=== PATIENT | male | born 1980 | race Caucasian/White ===

== ENCOUNTER 2024-04-28 17:01 | Inpatient (IN) | payer OTHER ==
[~2024-04-28] VITALS: Ht 182.9 cm; Wt 109.4 kg
[2024-04-28] MEDS: LABETALOL HCL 5 MG/ML 20 ML VIAL IVP ONE (20:07)
[2024-04-28] MEDS: HydrALAZINE HCL 20 MG/ML VIAL IVP ONE (21:19)
[2024-04-28] MEDS: AmLODIPine BESYLATE 10 MG TABLET PO SCH (22:30)
[2024-04-28] MEDS: NITROGLYCERIN 2% (1 GM=INCH) OINTMENT PACKET TP SCH (22:32)
[2024-04-28] MEDS: HydrALAZINE HCL 20 MG/ML VIAL IVP PRN (23:21)
[2024-04-29] VITALS (7 sets, daily range): BP systolic 128–191; BP diastolic 66–106; PULSE 61–92; RESP 17–18; TEMP 98–98.3; O2SAT 95–98
[2024-04-29] MEDS: HEPARIN SODIUM,PORCINE 5,000 UNITS/ML VIAL SQ SCH
[2024-04-29] MEDS: ACETAMINOPHEN 325 MG TABLET PO PRN (00:02)
[2024-04-29] MEDS ORDERED: TERAZOSIN HCL 2 MG CAPSULE PO SCH (00:15)
[2024-04-29] MEDS: LISINOPRIL 10 MG TABLET PO ONE (00:57)
[2024-04-29] MEDS ORDERED: SODIUM CHLORIDE 0.9% 250 ML IV ONE (01:43)
[2024-04-29] MEDS: ACETAMINOPHEN 500 MG/ISO-OSM 50 ML IV ONE (02:12)
[2024-04-29] MEDS: ONDANSETRON HCL 4 MG/2 ML VIAL IVP PRN (06:18)
[2024-04-29] MEDS: NITROGLYCERIN 2% (1 GM=INCH) OINTMENT PACKET TP SCH ×2 (06:21→12:19)
[2024-04-29 07:07] LABS: ANION GAP 11 mmol/L (8-16); CALCIUM, TOTAL 8.9 mg/dL (8.8-10.5); CARBON DIOXIDE 26 mmol/L (22-29); CHLORIDE 100 mmol/L (98-107); CREATININE 0.95 mg/dL (0.60-1.30); GLOMERULAR FILTR. RATE CALC > 60 mL/min (>60); GLUCOSE,RANDOM 110 mg/dL (70-110); POTASSIUM 3.6 mmol/L (3.5-5.1); SODIUM SERUM 137 mmol/L (136-145); UREA NITROGEN, BLOOD 12 mg/dL (7-18)
[2024-04-29 07:13] LABS: BASOPHILS % (AUTO) 0.2 % (0.0-2.0); EOSINOPHILS % (AUTO) 0.1 % (1.0-6.0); HEMATOCRIT 48.1 % (41-53); HEMOGLOBIN 16.3 g/dL (13.5-17.5); LYMPHOCYTES # (AUTO) 1.6 K/uL (1.0-4.8); LYMPHOCYTES % (AUTO) 14.4 % (22.0-44.0); MEAN CORPUSCULAR HGB CONC 33.9 G/dL (31.0-37.0); MEAN CORPUSCULAR VOLUME 89 fL (80-100); MONOCYTES # (AUTO) 0.7 K/uL (0.1-1.0); NEUTROPHILS # (AUTO) 8.8 K/uL (1.8-7.7); NEUTROPHILS % (AUTO) 79.3 % (40.0-70.0); PLATELET COUNT (AUTO) 364 K/uL (150-450); RED BLOOD CELL COUNT(AUTO) 5.44 MIL/uL (4.50-5.90); RED CELL DISTRIBUTION WIDTH 12.7 % (11.5-14.5); WHITE BLOOD COUNT (AUTO) 11.1 K/uL (4.5-11.0)
[2024-04-29] MEDS ORDERED: LISI-658 PO (10:13)
[2024-04-29] MEDS ORDERED: CARV6 PO (10:13)
[2024-04-29] MEDS ORDERED: AMLO-258 PO (10:13)
[2024-04-29] MEDS: HydrALAZINE HCL 20 MG/ML VIAL IVP PRN (12:20)
[2024-04-29] MEDS: LABETALOL HCL 5 MG/ML 20 ML VIAL IVP ONE (13:46)
[2024-04-29] MEDS: HydrALAZINE HCL 25 MG TABLET PO SCH (16:46)
[2024-04-29 18:25] LABS: TROPONIN I-HIGH SENSITIVITY 14 ng/L (<76)
[2024-04-29] MEDS: LISINOPRIL 20 MG TABLET PO SCH (21:46)
[2024-04-30] VITALS (9 sets, daily range): BP systolic 155–194; BP diastolic 83–113; PULSE 78–171; RESP 16–18; TEMP 97.8–98.6; O2SAT 95–99
[2024-04-30 04:10] LABS: APPEARANCE,URINE CLEAR (CLEAR); BILIRUBIN,URINE NEGATIVE (NEGATIVE); COLOR,URINE LIGHT YELLOW (YELLOW); GLUCOSE, URINE (UA) NEGATIVE (NEGATIVE); LEUKOCYTE ESTERASE ,URINE NEGATIVE (NEGATIVE); NITRATE,URINE NEGATIVE (NEGATIVE); OCCULT BLOOD,URINE NEGATIVE (NEGATIVE); PROTEIN,URINE 30-70 mg/dL (NEGATIVE); SPECIFIC GRAVITIY, URINE 1.014 (1.003-1.030)
[2024-04-30 04:16] LABS: ALCOHOL, URINE DRUG SCREEN NEGATIVE (NEGATIVE); AMPHET/METH SCREEN,URINE POSITIVE (NEGATIVE); BARBITURATE SCREEN, URINE NEGATIVE (NEGATIVE); BENZODIAZEPINES SCREEN,URINE NEGATIVE (NEGATIVE); CANNABINOID SCREEN,URINE POSITIVE (NEGATIVE); COCAINE SCREEN,URINE NEGATIVE (NEGATIVE); METHADONE SCREEN, URINE NEGATIVE (NEGATIVE); OPIATE SCREEN,URINE NEGATIVE (NEGATIVE); PHENCYCLIDINE SCREEN,URINE NEGATIVE (NEGATIVE)
[2024-04-30] MEDS: CloNIDine HCL 0.1 MG TABLET PO PRN (06:12)
[2024-04-30 06:46] LABS: BASOPHILS % (AUTO) 0.1 % (0.0-2.0); EOSINOPHILS % (AUTO) 0.1 % (1.0-6.0); HEMATOCRIT 48.7 % (41-53); HEMOGLOBIN 16.7 g/dL (13.5-17.5); LYMPHOCYTES # (AUTO) 1.9 K/uL (1.0-4.8); LYMPHOCYTES % (AUTO) 14.5 % (22.0-44.0); MEAN CORPUSCULAR HEMOGLOBIN 30.5 pg (26.0-34.0); MEAN CORPUSCULAR HGB CONC 34.4 G/dL (31.0-37.0); MEAN CORPUSCULAR VOLUME 89 fL (80-100); MONOCYTES # (AUTO) 1.6 K/uL (0.1-1.0); MONOCYTES % (AUTO) 11.9 % (2.0-9.0); NEUTROPHILS # (AUTO) 9.7 K/uL (1.8-7.7); NEUTROPHILS % (AUTO) 73.4 % (40.0-70.0); PLATELET COUNT (AUTO) 362 K/uL (150-450); RED CELL DISTRIBUTION WIDTH 12.9 % (11.5-14.5); WHITE BLOOD COUNT (AUTO) 13.2 K/uL (4.5-11.0)
[2024-04-30 07:19] LABS: TROPONIN I-HIGH SENSITIVITY 16 ng/L (<76)
[2024-04-30 07:24] LABS: ANION GAP 10 mmol/L (8-16); CALCIUM, TOTAL 9.3 mg/dL (8.8-10.5); CARBON DIOXIDE 27 mmol/L (22-29); CHLORIDE 97 mmol/L (98-107); CREATININE 0.84 mg/dL (0.60-1.30); GLOMERULAR FILTR. RATE CALC > 60 mL/min (>60); GLUCOSE,RANDOM 108 mg/dL (70-110); POTASSIUM 3.7 mmol/L (3.5-5.1); SODIUM SERUM 134 mmol/L (136-145); THYROID STIMULATING HORMONE 1.48 uIU/mL (0.36-3.74); UREA NITROGEN, BLOOD 14 mg/dL (7-18)
[2024-04-30] MEDS: CARVEDILOL 12.5 MG TABLET PO SCH (08:33)
[2024-05-01 00:11] VITALS: BP 152/92; PULSE 93; RESP 17; TEMP 97.9; O2SAT 94
[2024-05-01 05:36] VITALS: BP 147/83; PULSE 89; RESP 18; TEMP 98.7; O2SAT 95
[2024-05-01] MEDS: CARVEDILOL 12.5 MG TABLET PO SCH (09:04)
[2024-05-01] MEDS ORDERED: CARV25 PO (11:24)
[2024-05-01] MEDS ORDERED: LISI-894 PO (11:25)
[2024-05-01] MEDS ORDERED: HYDR25TA84 PO (11:25)
[2024-05-01 11:39] VITALS: BP 102/60; PULSE 77; RESP 20; TEMP 98.8; O2SAT 96
[2024-05-01 12:00] VITALS: BP 125/78; PULSE 79; RESP 16; TEMP 98.1; O2SAT 96
== END 2024-05-01 14:00 | DRG 305 ==
LOC: EMS 17:01 → EDH 22:39 → 5S 04-29 00:17
PROVIDERS: ADMIT Internal Medicine; ATTEND Internal Medicine
DX: I16.1 Hypertensive emergency (principal); E66.9 Obesity, unspecified; D72.829 Elevated white blood cell count, unspecified; I10 Essential (primary) hypertension; Q23.81 Bicuspid aortic valve; Z87.891 Personal history of nicotine dependence; Z68.32 Body mass index [BMI] 32.0-32.9, adult
CPT/HCPCS: 70450; 80048; 80307; 81003; 83735; 84443; 84484; 85025; 93005; 93306; 99285; G0378; J0131; J0360; J1644; J2405; J3490; J7050

== ENCOUNTER → 2024-04-28 | Emergency (ER) | payer OTHER ==
[~2024-04-28] VITALS: Ht 188 cm; Wt 109.0 kg
[~2024-04-28] MED LIST: AMLO-258 PO; CARV25 PO; CARV6 PO; HYDR25TA84 PO; HydrALAZINE HCL 20 MG/ML VIAL ONE; LISI-658 PO; LISI-894 PO
[2024-04-28 10:47] VITALS: TEMP 97.1
[2024-04-28 11:24] LABS: BASOPHILS % (AUTO) 0.5 % (0.0-2.0); EOSINOPHILS % (AUTO) 0.3 % (1.0-6.0); HEMATOCRIT 46.6 % (41-53); HEMOGLOBIN 15.7 g/dL (13.5-17.5); MEAN CORPUSCULAR HEMOGLOBIN 30.3 pg (26.0-34.0); MEAN CORPUSCULAR HGB CONC 33.8 G/dL (31.0-37.0); MEAN CORPUSCULAR VOLUME 90 fL (80-100); MONOCYTES # (AUTO) 0.7 K/uL (0.1-1.0); MONOCYTES % (AUTO) 7.6 % (2.0-9.0); NEUTROPHILS # (AUTO) 6.7 K/uL (1.8-7.7); NEUTROPHILS % (AUTO) 70.6 % (40.0-70.0); PLATELET COUNT (AUTO) 324 K/uL (150-450); RED BLOOD CELL COUNT(AUTO) 5.19 MIL/uL (4.50-5.90); WHITE BLOOD COUNT (AUTO) 9.5 K/uL (4.5-11.0)
[2024-04-28 11:35] LABS: PROTHROMBIN TIME 10.8 SEC (9.4-11.6)
[2024-04-28 11:36] LABS: ANION GAP 6 mmol/L (8-16); CARBON DIOXIDE 31 mmol/L (22-29); CHLORIDE 100 mmol/L (98-107); CREATININE 0.93 mg/dL (0.60-1.30); GLOMERULAR FILTR. RATE CALC > 60 mL/min (>60); GLUCOSE,RANDOM 108 mg/dL (70-110); POTASSIUM 4.6 mmol/L (3.5-5.1); SODIUM SERUM 137 mmol/L (136-145); UREA NITROGEN, BLOOD 10 mg/dL (7-18)
[2024-04-28 11:44] LABS: B-TYPE NATRIURETIC PEPTIDE 131 pg/mL (0-100); TROPONIN I-HIGH SENSITIVITY 20 ng/L (<76)
[2024-04-28 12:02] LABS: ALANINE AMINOTRANSFERASE 24 U/L (12-78); ALBUMIN 3.7 g/dL (3.4-5.0); ALKALINE PHOSPHATASE 96 U/L (46-116); ASPARTATE AMINOTRANSFERASE 20 U/L (15-37); BILIRUBIN,TOTAL 0.9 mg/dL (0.1-1.0); CREATINE KINASE, TOTAL ONLY 97 U/L (39-308); TOTAL PROTEIN, SERUM 7.6 g/dL (6.4-8.2)
[2024-04-28] MEDS: IBUPROFEN 600 MG TABLET PO ONE (12:34)
[2024-04-28] MEDS: ACETAMINOPHEN 325 MG TABLET PO ONE (12:34)
[2024-04-28] MEDS: HYDROCHLOROTHIAZIDE 25 MG TABLET PO ONE (14:39)
[2024-04-28 14:45] VITALS: BP 172/100; PULSE 69; RESP 16; O2SAT 99
== END | disposition still patient (30) ==
LOC: EMS 10:06
DX: I10 Essential (primary) hypertension (principal); R51.9 Headache, unspecified
CPT/HCPCS: 71045; 80053; 82550; 83880; 84484; 85025; 85610; 85730; 93005; 99285; J0360; 36415-L1; 36415-TC